=== PATIENT | female | born 1955 | race Caucasian/White ===

== ENCOUNTER → 2016-08-23 | Outpatient (CLI) | payer BC ==
--- NOTE | 2016-08-23 15:47 | KCIC ---
CHEST PA LATERAL History: Shortness of air, cough x1 month Comparison: None. Findings: Atherosclerotic aortic arch. Cardiac size upper limits of normal. Pulmonary vasculature is normal. The lungs are clear. No pleural effusion or pneumothorax is seen. There is no acute bone abnormality. IMPRESSION: No acute cardiopulmonary process. Electronically signed by: Luis Alfredo Gibson MD (08/23/2016 3:44 PM)
== END | disposition home or self-care (01) ==
LOC: KCIC 14:55
PROVIDERS: ATTEND Internal Medicine Pulmonary Disease
DX: R06.02 Shortness of breath (principal); R05 Cough; I10 Essential (primary) hypertension; I48.91 Unspecified atrial fibrillation; Z87.891 Personal history of nicotine dependence
CPT/HCPCS: 71020

== ENCOUNTER → 2016-11-10 | Outpatient (CLI) | payer BC ==
--- NOTE | 2016-11-10 15:15 | KCIC ---
Examination: CT chest without contrast HISTORY: History of chronic cough, shortness of breath COMPARISON: None available Technique: Axial CT images of the chest were performed without IV contrast and coronal sagittal reformats are performed Exposure: One or more of the following individualized dose reduction techniques were utilized for this examination: 1. Automated exposure control 2. Adjustment of the mA and/or kV according to patient size 3. Use of iterative reconstruction technique. FINDINGS: The visualized thyroid gland grossly appears unremarkable. The central airways are patent. Moderate aortic atherosclerosis. Diffuse coronary artery calcifications identified. Mild cardiomegaly. Few prominent mediastinal lymph nodes identified with the largest measuring 1.1 cm in the pretracheal region. Mild paraseptal emphysematous changes identified in the apical lungs. 7 mm nodule identified along the right major fissure. Minimal bibasilar lung atelectasis. No evidence of pleural effusion or pneumothorax. The visualized noncontrasted liver, demonstrates a tiny subcentimeter hypodensity the left lobe could be a cyst or hemangioma. The visualized spleen, adrenals grossly appears unremarkable Mild degenerative changes thoracic spine. There is a 1 cm nodule identified in the left breast. 2 small nodules identified in the right breast measuring 9 mm and 1 cm. IMPRESSION: 1. 7 mm solid nodule identified along the right major fissure the lung. Follow-up per Fleischner Society guidelines. Follow-up CT is recommended in 6 months. 2. Few prominent mediastinal lymph nodes identified, nonspecific. 2. Coronary artery calcifications. 4. Mild paraseptal emphysematous changes identified in the lungs. 5. Small nodules identified in the bilateral breasts. Recommend mammogram for further evaluation. Electronically signed by: Juan Horne MD (11/10/2016 3:12 PM) [facility]
== END | disposition home or self-care (01) ==
LOC: KCIC CT 14:24
PROVIDERS: ATTEND Internal Medicine Pulmonary Disease
DX: I51.7 Cardiomegaly (principal); I25.10 Atherosclerotic heart disease of native coronary artery without angina pectoris; N63 Unspecified lump in breast
CPT/HCPCS: 71250

== ENCOUNTER 2017-03-04 09:25 | Day surgery (SDC) | payer OTHER, BC ==
[~2017-03-04 09:25] MED LIST: 0.9 % SODIUM CHLORIDE 10 ML DISP.SYRIN. IV; HYDROmorphone 2 MG/ML VIAL IV; LIDOCAINE 1% PF 2 ML VIAL. ID; MORPHINE SULFATE 2 MG/ML DISP.SYRIN. IV; ONDANSETRON PF 4 MG/2 ML VIAL. IV; PROCHLORPERAZINE 10 MG/2 ML VIAL. IV; fentaNYL PF VIAL 100 MCG/2 ML VIAL IV
[2017-03-04 10:33] LABS: ANION GAP 10 (6-14); BLOOD UREA NITROGEN 17 mg/dL (7-20); CALCIUM 9.1 mg/dL (8.5-10.1); CARBON DIOXIDE 26 mmol/L (21-32); CHLORIDE 105 mmol/L (98-107); CREATININE 0.8 mg/dL (0.6-1.0); GFR 73.4; GLUCOSE 108 mg/dL (70-99); MAGNESIUM 2.2 mg/dL (1.8-2.4); POTASSIUM 4.3 mmol/L (3.5-5.1); SODIUM 141 mmol/L (136-145)
[2017-03-04] MEDS ORDERED: PROPOFOL 20 ML IV (11:41)
[2017-03-04] MEDS: IV RINGERS,LACTATED 1000ML 1,000 ML IV (12:00)
== END 2017-03-04 14:56 | disposition home or self-care (01) ==
LOC: SURG 09:25
DX: I48.91 Unspecified atrial fibrillation (principal); I10 Essential (primary) hypertension; E78.5 Hyperlipidemia, unspecified; Z87.891 Personal history of nicotine dependence; Z82.49 Family history of ischemic heart disease and other diseases of the circulatory system; Z79.899 Other long term (current) drug therapy
CPT/HCPCS: 36415; 80048; 83735; 92960; 93005; 93306; J2704

== ENCOUNTER → 2017-04-28 | Outpatient (CLI) | payer BC | END | disposition home or self-care (01) | LOC: CT 15:20 | DX: J43.8 Other emphysema (principal); J18.1 Lobar pneumonia, unspecified organism; I31.3 Pericardial effusion (noninflammatory); I25.10 Atherosclerotic heart disease of native coronary artery without angina pectoris; R91.1 Solitary pulmonary nodule | CPT/HCPCS: 71250 ==

== ENCOUNTER → 2018-05-15 | Outpatient (CLI) | payer OTHER ==
[2017-03-04 14:30] VITALS: BP 149/59
[~2018-05-15] MED LIST changes: -0.9 % SODIUM CHLORIDE 10 ML DISP.SYRIN. IV; +AMIO200T4 PO; +APIX5TAB PO; +ASPI-482 PO; +BUDE10.2 IH; +CALC600T4 PO; +CARV12.511 PO; +CETI10TA22 PO; +FLUT9.9S NS; -HYDROmorphone 2 MG/ML VIAL IV; +LEVO50TA5 PO; -LIDOCAINE 1% PF 2 ML VIAL. ID; +LISI-334 PO; +MAGN500C10 PO; +MONT10TA9 PO; -MORPHINE SULFATE 2 MG/ML DISP.SYRIN. IV; +MULT-245 PO; +OMEP40CA5 PO; -ONDANSETRON PF 4 MG/2 ML VIAL. IV; -PROCHLORPERAZINE 10 MG/2 ML VIAL. IV; +SIMV40TA3 PO; -fentaNYL PF VIAL 100 MCG/2 ML VIAL IV
--- NOTE | 2018-05-15 18:15 | RAD ---
CT of the chest without contrast: Clinical History: Lung nodule. Axial helical images of the chest were obtained without contrast. The lungs and pleural margins are clear. There are a few small mediastinal lymph nodes. There is coronary artery calcifications. Impression: 1. Coronary artery calcification. 2. No acute findings. PQRS Compliance Statement: One or more of the following individualized dose reduction techniques were utilized for this examination: 1. Automated exposure control 2. Adjustment of the mA and/or kV according to patient size 3. Use of iterative reconstruction technique Electronically signed by: Benton Taylor III, MD (05/15/2018 6:12 PM) [id number]
== END | disposition home or self-care (01) ==
LOC: CT 16:24
PROVIDERS: ATTEND Internal Medicine Critical Care Medicine
DX: I25.10 Atherosclerotic heart disease of native coronary artery without angina pectoris (principal); R59.0 Localized enlarged lymph nodes; I10 Essential (primary) hypertension; J45.909 Unspecified asthma, uncomplicated; I48.91 Unspecified atrial fibrillation; Z79.01 Long term (current) use of anticoagulants; Z87.891 Personal history of nicotine dependence
CPT/HCPCS: 71250